=== PATIENT | male | born 1980 | race Caucasian/White ===

== ENCOUNTER 2017-07-30 17:08 | Emergency (ER) | payer SELFPAY ==
[~2017-07-30] VITALS: Ht 177.8 cm; Wt 89.0 kg
[2017-07-30 17:14] VITALS: BP 133/87; PULSE 96; RESP 19; TEMP 98.5; O2SAT 100
== END 2017-07-30 22:29 | disposition left against medical advice (07) ==
LOC: NED 17:08
DX: M54.9 Dorsalgia, unspecified (principal); Z53.21 Procedure and treatment not carried out due to patient leaving prior to being seen by health care provider
CPT/HCPCS: 99281